=== PATIENT | male | born 1985 | race Caucasian/White ===

== ENCOUNTER 2024-11-04 19:38 | Emergency (ER) | payer OTHER, SELFPAY ==
--- NOTE | 2024-11-04 19:30 | RT.EKG_ITS ---
APPROVED REPORT Exam: Resting ECG Reason for Exam: chest pain, SOB Patient Location: E HR:81 bpm ECG Measurements Heart Rate 81 AXIS TX 164 P 65 QRSd 94 QRS 6 QT 350 T 48 QTc 408 Conclusion Sinus rhythm, rate [address] elevation V2, V3, no reciprocal changes, likely LELO pattern, no priors available for comparison
[2024-11-04 20:11] VITALS: BP 180/116; PULSE 88; RESP 20; TEMP 36.8; O2SAT 95
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
[2024-11-04 20:14] LABS: Abs Immature Grans 0.03 10^3/uL (0.0-0.06); HCT 43.0 % (40.0-50.0); HGB 14.3 g/dL (13.5-17.5); Immature Grans % 0.3 %; MCH 31.1 pg (27.0-33.0); MCHC 33.3 % (32.0-36.0); MCV 94 fL (80-95); MPV 9.5 fL (8.0-11.0); Platelet Count 345 10^3/uL (130-400); RBC 4.60 10^6/uL (4.36-5.78); RDW 13.4 % (11.8-14.1); RDW-SD 46.0 fL; WBC 10.64 10^3/uL (4.4-10.8)
[2024-11-04] MEDS: Normal Saline - Diluent 50 ML VIAL IJ (20:14)
[2024-11-04] MEDS: Normal Saline Flush 10 ML SYR IVP (20:15)
[2024-11-04] MEDS: Omnipaque 350 MG/ML 100 ML BTL IJ (20:16)
--- NOTE | 2024-11-04 20:29 | DI.CT_ITS ---
Exam(s) CT CHEST PE ABD PELVIS W EXAM: CT CHEST PE ABD PELVIS W CLINICAL HISTORY: RUQ pain worst with breathing. TECHNIQUE: Imaging Protocol: Axial computed tomography images with coronal and sagittal reformatted images were created and reviewed. Computer aided detection (CAD) was utilized. CONTRAST MATERIAL: Intravenous: Omnipaque 350 Contrast volume:100 ml Oral: no COMPARISON: No exams were available for comparison FINDINGS: CHEST: Pulmonary parenchyma: Expiratory changes. No consolidation. No dominant measurable mass. Tracheobronchial tree: No bronchiectasis. No mucous plugging.No bronchial wall thickening. Pleura: No effusion or pneumothorax. Mediastinum: Within normal limits. Pulmonary arteries: No visible emboli. Cardiovascular: No pericardial effusion. Thoracic aorta non-dilated. Bones: Unremarkable for age. No lytic or blastic lesions. No compression fractures. Soft tissues: Unremarkable. ABDOMEN and PELVIS: The exam is somewhat limited by motion. Liver: Normal density. No suspicious mass. Gallbladder and biliary tract: No evidence of stones or wall thickening. No biliary dilatation. Pancreas: Normal density, no abnormal calcifications or inflammatory process. Spleen: Normal. Kidneys: Normal size, contour and axis. No radiodense stones. No obstructive uropathy. No suspicious masses seen. Adrenal glands: No masses seen. Vasculature: Abdominal aorta non-dilated. No visible atherosclerotic changes. Celiac artery con mesenteric arteries renal arteries are patent without visible stenosis. Portal and splenic veins are patent. Lymph nodes: Within normal limits. Soft tissues: Unremarkable. Bladder: Unremarkable. Bowel: No obstruction or bowel wall thickening. Large quantity of stool consistent with constipation. Appendix partially obscured. Peritoneal cavity: No ascites. No focal collection. No mesenteric inflammatory response. No free air. Bones: Unremarkable for age. Reproductive organs: Unremarkable for age. IMPRESSION: No acute abnormality in the chest, abdomen or pelvis. The preliminary [facility] report was reviewed. RADIATION DOSE DELIVERED: Total DLP DATA REPOSITORY: All CT scans at this facility are submitted to the National Radiology Data Registry (NRDR) Dose Index Registry (DIR) with the [employer] (A[employer]). RADIATION OPTIMIZATION: All CT scans at this facility use at least one of these dose optimization techniques: automated exposure control; mA and/or kV adjustment per patient size (includes targeted exams where dose is matched to clinical indication); or iterative reconstruction.
[2024-11-04 20:32] LABS: ALT 68 U/L (16-63); AST 38 U/L (15-37); Albumin 4.0 g/dL (3.4-5.0); Alkaline Phosphatase 81 U/L (46-116); Anion Gap 5.9 mmol/L (3-11); BUN 13 mg/dL (7-18); Bilirubin, Total 0.3 mg/dL (0.2-1.0); CO2 29.1 mmol/L (21.0-32.0); Calcium 8.7 mg/dL (8.5-10.1); Chloride 102 mmol/L (98-107); Estimated GFR 114.74 (mL/min/1.73m2); Glucose 133 mg/dL (74-106); Lipase 33 U/L (<78); Magnesium 1.9 mg/dL (1.8-2.4); Potassium 4.1 mmol/L (3.5-5.1); Sodium 137 mmol/L (136-145); Total Protein 7.3 g/dL (6.4-8.2); Troponin I 4 ng/L (<or=76)
--- NOTE | 2024-11-04 21:22 | DI.[facility]_ITS ---
PROCEDURE INFORMATION: Exam: CTA Chest With Contrast CTA Abdomen With Contrast Exam date and time: 11/04/2024 8:19 PM Age: 39 years old Clinical indication: Other: Ruq pain worst with breathing TECHNIQUE: Imaging protocol: Computed tomographic angiography of the chest with contrast. Exam focused on the arteries. Computed tomographic angiography of the abdomen with contrast. Exam focused on the arteries. 3D rendering (Not supervised by radiologist): MIP and/or 3D reconstructed images were created by the technologist. Contrast material: OMNIPAQUE 350; Contrast volume: 100 ml; Contrast route: INTRAVENOUS (IV); COMPARISON: No relevant prior studies available. FINDINGS: VASCULATURE: Pulmonary arteries: Normal. No pulmonary emboli. Aorta: No aortic aneurysm. No aortic dissection. Celiac trunk and mesenteric arteries: No occlusion or significant stenosis. Renal arteries: No occlusion or significant stenosis. Thyroid: No thyroid lesions. No thyroid enlargement. CHEST: Trachea: The central airways clear. Lungs: Linear bibasilar opacities most consistent with subsegmental atelectasis. Pleural spaces: Unremarkable. No pneumothorax. No pleural effusion. Heart: No cardiomegaly or pericardial effusion. ABDOMEN AND PELVIS: Liver: No mass. Gallbladder and biliary ducts: Unremarkable. No calcified stones. No ductal dilation. Pancreas: Unremarkable. No mass. No ductal dilation. Spleen: Unremarkable. No splenomegaly. Adrenal glands: Unremarkable. No mass. Kidneys: Unremarkable kidneys. No solid mass. No hydronephrosis. Stomach and bowel: Unremarkable. No obstruction. No mucosal thickening. Intraperitoneal space: Unremarkable. No free air. No significant fluid collection. Lymph nodes: No axillary adenopathy. Bones/joints: No acute osseous abnormality. Soft tissues: Soft tissues are unremarkable as visualized. IMPRESSION: No acute findings. Dictated and Authenticated by: Katy Boles MD. Orderin [facility]. Josias Mai MD
[2024-11-04 21:31] LABS: Troponin I 6 ng/L (<or=76)
[2024-11-04] MEDS: Lidocaine 5% Patch 1 PATCH TP (21:50)
[2024-11-04 21:57] VITALS: BP 154/98; PULSE 87; RESP 18; TEMP 36.9; O2SAT 97
== END 2024-11-04 21:59 ==
PROVIDERS: Emergency Provider Emergency Medicine
DX: R10.11 Right upper quadrant pain (principal)
CPT/HCPCS: 99285; 99284; 36415; 71275; 74177; 80053; 83690; 93005; 83735; 84484; 85025; 93010; J3490